=== PATIENT | female | born 1980 | race American Indian/Alaskan Native ===

== ENCOUNTER 2022-01-07 08:17 | Emergency (ER) | payer MEDICARE ==
[2022-01-07 08:50] VITALS: BP 141/80
== END 2022-01-07 15:25 | disposition left against medical advice (07) ==
LOC: ED 08:17
DX: M25.559 Pain in unspecified hip (principal); M79.606 Pain in leg, unspecified; Z53.21 Procedure and treatment not carried out due to patient leaving prior to being seen by health care provider